=== PATIENT | female | born 1995 | race Native Hawaiian/Other Pacific Islander ===

== ENCOUNTER 2017-03-16 10:54 | Emergency (ER) | payer SELFPAY ==
[2017-03-16 11:03] VITALS: BP 116/72; PULSE 78; RESP 18; TEMP 98.2; O2SAT 100; BMI 18.8
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
== END 2017-03-16 11:40 | disposition home or self-care (01) ==
LOC: C.ER 10:54
DX: S00.03XA Contusion of scalp, initial encounter (principal); W17.89XA Other fall from one level to another, initial encounter